=== PATIENT | female | born 1945 | race Caucasian/White ===

== ENCOUNTER 2020-04-30 10:25 | Emergency (ER) | payer OTHER ==
[~2020-04-30] VITALS: Ht 167.6 cm; Wt 77.1 kg
[~2020-04-30 10:25] MED LIST: ASPIR 8181 MG PO; LEVOTHYROXINE 0.1 MG PO; MECLIZINE HCL12.5 MG PO; QUINU10 PD PO; VENLAFAXIN75 MG/1 T2 PO; ZOCOR40 MG PO
[2020-04-30 10:27] VITALS: BP 153/85
[2020-04-30 12:27] LABS: ABSOLUTE NEUTROPHILS 7.4 thou/uL (1.4-8.2); BASOPHILS 0.7 % (0.0-2.0); EOSINOPHILS 1.4 % (0.0-3.0); HEMATOCRIT 40.6 % (37.0-47.0); LYMPHOCYTES 23.6 % (24.0-44.0); MCH 33.5 pg (26.0-34.0); MCHC 34.5 g/dL (28.0-37.0); MCV 97.1 fL (80.0-100.0); MONOCYTES 5.5 % (1.0-8.0); PLATELET COUNT 162 thou/uL (150-400); POLYS 68.8 % (36.0-66.0); RBC 4.18 mil/uL (4.20-5.00); RDW 13.5 % (10.5-14.5); WBC 10.8 thou/uL (4.0-11.0)
[2020-04-30 12:50] LABS: ANION GAP 8 mmol/L (7-16); BUN 23 mg/dL (7-18); CALCIUM 9.8 mg/dL (8.5-10.1); CHLORIDE 103 mmol/L (98-107); CO2 29 mmol/L (21-32); CREATININE 1.3 mg/dL (0.6-1.0); GLUCOSE 226 mg/dL (74-106); POTASSIUM 4.4 mmol/L (3.5-5.1); SODIUM 140 mmol/L (136-145)
[2020-04-30 12:59] LABS: ALBUMIN 3.9 g/dL (3.4-5.0); SGOT 22 U/L (15-37); SGPT 37 U/L (14-59); TOTAL BILIRUBIN 0.4 mg/dL (0.2-1.0); TOTAL PROTEIN 7.4 g/dL (6.4-8.2); TROPONIN-I <0.06 ng/mL (<0.06)
--- NOTE | 2020-04-30 15:32 | EKG ---
[address] [address] ELECTROCARDIOGRAM REPORT Name: SALVADOR DIANA Room #: REG SUMMIT CAMPUSYee#: [id number] Admission: 04/30/20 Attend Phys: Discharge: Date of : 45 Report #: [id number] [facility] ED Test Date: 2020-04-30 Test Time: 11:35:50 Pat Name: SALVADOR DIANA Department: Room: Gender: F Validation Specialist: PATRICIA : 1945 Requested By: Regino Tyler Order Number: [id number] MD: Jonathan Reilly Measurements Intervals [place] Rate: 52 P: 36 [place]: 162 QRS: 16 QRSD: 86 T: 59 QT: 444 QTc: 413 Interpretive Statements Sinus rhythm Compared to ECG 01/27/2014 10:17:44 No significant changes Electronically Signed On 04-30-2020 15:31:54 [employer] by Jonathan Reilly [email or web address] <ELECTRONICALLY SIGNED> By: Jonathan Reilly MD, [facility] 04/30/20 1531 1135 [id number] Jonathan Reilly MD, FACC /EPI
[2020-04-30 16:05] LABS: URINE BILIRUBIN NEGATIVE (Negative); URINE BLOOD NEGATIVE (Negative); URINE CLARITY CLEAR; URINE COLOR YELLOW; URINE GLUCOSE-RANDOM* NEGATIVE (Negative); URINE KETONES NEGATIVE (Negative); URINE LEUKOCYTES-REFLEX NEGATIVE (Negative); URINE NITRITE-REFLEX NEGATIVE (Negative); URINE PROTEIN (DIPSTICK) NEGATIVE (Negative); URINE SPECIFIC GRAVITY >= 1.030 (1.005-1.035); URINE UROBILINOGEN 0.2 E.U./dl (0.2-1.0)
[2020-04-30 17:19] VITALS: BP 134/72
== END 2020-04-30 17:30 | disposition home or self-care (01) ==
LOC: ER 10:25 → EROBS 16:33 → ER 17:30 → EROBS 17:30
PROVIDERS: Physician Assistant
DX: R27.0 Ataxia, unspecified (principal); E11.9 Type 2 diabetes mellitus without complications; I10 Essential (primary) hypertension; E78.5 Hyperlipidemia, unspecified; Z79.899 Other long term (current) drug therapy; Z79.82 Long term (current) use of aspirin